=== PATIENT | female | born 1980 | race Caucasian/White ===

== ENCOUNTER 2017-11-08 13:11 | Emergency (ER) | payer BC, MEDICAID ==
--- NOTE | 2017-11-08 13:32 | Emergency Department Record ---
History of Present Illness - General Chief complaint: Extremity Problem Stated complaint: INFECTION IN FINGER Time Seen by Provider: 11/08/17 13:22 Source: Patient Mode of Arrival: Ambulatory Limitations: No limitations - History of Present Illness Initial comments: The patient is here due to L 3rd finger pain for 2 weeks. She has had an injury to the finger months ago and did have surgery by Dr. Beaver who is a hand specialist 3 months ago which I believe was an extensor tendon repair. Now for the last 2 weeks and post op area has been more painful and slightly erythematous. She denies any new injury. MD Complaint: Extremity pain Onset/Timin -: Week(s) Location: Left, Hand History of Same: Yes Severity scale (1-10): 7 Quality: Aching Improves with: Rest Associated Symptoms: Denies other symptoms - Related Data Previous Rx's Medication Instructions Recorded Cephalexin [Keflex] 500 mg PO QID #28 cap 11/08/17 Allergies Allergy/AdvReac Type Severity Reaction Status Date / Time clindamycin Allergy RASH Verified 11/08/17 13:22 Travel Screening - Travel/Exposure Within Last 30 Days Have you traveled within the last 30 days?: No - Travel/Exposure Within Last Year Have you traveled outside the [place] in the last year?: No - Additonal Travel Details Have you been exposed to anyone with a communicable illness?: No - Travel Symptoms Symptom Screening: None Review of Systems Constitutional: Denies: Chills, Fever Past Medical History - SOCIAL HISTORY Smoking Status: Current every day smoker Alcohol Use: Rare, Occasional Drug Use: None - RESPIRATORY Hx Respiratory Disorders: No - CARDIOVASCULAR Hx Cardio Disorders: No - NEURO Hx Neuro Disorders: No - GI Hx GI Disorders: No - Hx Genitourinary Disorders: No - ENDOCRINE Hx Diabetes: No Hx Thyroid Disease: No - MUSCULOSKELETAL Hx Musculoskeletal Disorders: No - PSYCH Hx Psych Problems: No - HEMATOLOGY/ONCOLOGY Hx Anemia: No Hx Blood Disorders: No Hx Bruising: No Hx Cancer: No Family Medical History Any Significant Family History?: Yes Family Hx Comment (NOT TO BE USED IN PLACE OF ITEMS BELOW): none noted Physical Exam - General General Appearance: Alert, Oriented x3, Cooperative, No acute distress - Head Head exam: Atraumatic, Normocephalic, Normal inspection - Eye Eye exam: Normal appearance, PERRL - Extremities Extremities exam: Other (There was a 2 mm area of surgical sutures that was poking out of the skin. The area was trimmed sterile fashion at the skin site.) . negative: Normal inspection (The L 3rd finger is very mildly swollen dorsally between the PIP and DIP joints. There is slight erythema present with tenderness. The patient does have adequate ROM presently and no pain, swelling, or tenderness over the flexor tendon area.) - Neurological Neurological exam: Alert. negative: Motor sensory deficit Course Vital Signs 11/08/17 13:13 Temperature 97.9 F Pulse Rate 90 Respiratory 16 Rate Blood Pressure 112/103 Pulse Ox 99 - Reevaluation(s) Reevaluation #1: I did discuss the need for the oral Abx's and OTC pain medicines to the patient. She is to F/U with her hand specialist ELI. 11/08/17 13:43 Disposition Disposition: Discharge Clinical Impression: Finger infection Disposition: Home, Self-Care Condition: (2) Stable Instructions: [place] (ED) Additional Instructions: Please take the Keflex as directed and soak the finger 3-4 times a day in warm water. Please see your Hand Specialist next week. Return to the ER if worse. Please take Motrin or Naprosyn for pain. Prescriptions: Cephalexin [Keflex] 500 mg PO QID #28 cap Forms: Patient Portal Access Quality - Quality Measures Quality Measures: N/A - Blood Pressure Screening View Details: Yes Does Patient Have Any of the Following: No Blood Pressure Classification: Hypertensive Reading Systolic Measurement: 112 Diastolic Measurement: 103 Screening for High Blood Pressure: < First Hypertensive BP, F/U Documented > [ [id number]] First Hypertensive Follow-up Interventions: Referral to alternative/primary care provider.
[2017-11-08] MEDS: CEPHALEXIN 500 MG CAPSULE PO STA (13:36)
== END 2017-11-08 13:52 | disposition home or self-care (01) ==
LOC: ER 13:11
DX: L08.89 Other specified local infections of the skin and subcutaneous tissue (principal); M79.645 Pain in left finger(s)
CPT/HCPCS: 99282